=== PATIENT | male | born 1985 | race Caucasian/White ===

== ENCOUNTER 2019-08-15 15:34 | Emergency (ER) | payer MEDICAID, SELFPAY ==
[2019-08-15 15:35] VITALS: BP 115/79; PULSE 101; RESP 17; TEMP 36.5; O2SAT 99; BMI 25.9
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
[2019-08-15] MEDS: Ceftriaxone 500 MG Vial 250 MG IM (16:28)
[2019-08-15] MEDS: Azithromycin 250 MG Tablet 1000 MG PO (16:28)
--- NOTE | 2019-08-15 16:48 | RAD_ITS ---
STUDY: X-RAY CHEST REASON FOR EXAM: Male, 33 years old. Mid chest pain. Shortness of breath beginning today. TECHNIQUE: PA and lateral views of the chest. COMPARISON: None. FINDINGS: The lungs are clear and expanded. There is no demonstrated pleural abnormality. Normal size heart. Normal mediastinum and cristela. Normal visualized pulmonary arteries. Normal visualized aortic arch and descending thoracic aorta. Normal visualized thoracic spine. There is a metallic plate and screws along the upper aspect of the mid right clavicle. There is no demonstrated abnormality of the visualized soft tissue structures of the upper abdomen. RAD/Chest PA and Lateral IMPRESSION: No acute cardiopulmonary disease. Electronically Signed: Stephen Figueroa DO at 17:03 EST Tel [phone], Service support ,
[2019-08-15 18:44] LABS: Chlamydia Trachomatis by PCR Negative (Negative); Neisserai gonorrhoeae by PCR Negative (Negative); Probe Check PASS; Sample Adequacy Control PASS; Specimen Processing Control PASS
== END 2019-08-15 17:05 | disposition home or self-care (01) ==
PROVIDERS: Emergency Provider Emergency Medicine
DX: S06.0X0A Concussion without loss of consciousness, initial encounter (principal); R07.89 Other chest pain; M79.631 Pain in right forearm; N34.2 Other urethritis; Z72.0 Tobacco use; Y09 Assault by unspecified means; Y93.89 Activity, other specified; Y92.89 Other specified places as the place of occurrence of the external cause; Y99.8 Other external cause status
CPT/HCPCS: 71046; 87491; 87591; 96372; 99282